=== PATIENT | female | born 1930 | race Caucasian/White ===

== ENCOUNTER 2019-03-06 20:15 | Emergency (ER) | payer OTHER ==
[~2019-03-06] VITALS: Ht 154.9 cm; Wt 63.5 kg
[2019-03-07 00:15] VITALS: BP 154/65
== END 2019-03-07 00:22 | disposition home or self-care (01) ==
LOC: ED 20:15
DX: M54.5 Low back pain (principal); E78.00 Pure hypercholesterolemia, unspecified; E03.9 Hypothyroidism, unspecified; Z90.89 Acquired absence of other organs; Z90.49 Acquired absence of other specified parts of digestive tract; W18.39XA Other fall on same level, initial encounter; Y93.89 Activity, other specified; Y92.89 Other specified places as the place of occurrence of the external cause; Y99.8 Other external cause status